=== PATIENT | female | born 1985 | race Caucasian/White ===

== ENCOUNTER 2021-12-02 15:08 | Emergency (ER) | payer OTHER ==
[~2021-12-02] VITALS: Ht 157.5 cm; Wt 48.5 kg
[2021-12-02] MEDS ORDERED: IBUPROFEN 600 MG TABLET ONE (16:31)
[2021-12-02] MEDS: IBUPROFEN 600 MG TABLET PO ONE (16:34)
--- NOTE | 2021-12-02 16:34 | NUR ---
PO MOTRIN GIVEN ORDERED
[2021-12-02] MEDS ORDERED: IBUP-1955 PO (17:28)
[2021-12-02] MEDS ORDERED: CEPH500T PO (17:28)
[2021-12-02 17:59] VITALS: BP 99/71
--- NOTE | 2021-12-02 17:59 | NUR ---
Patient discharged to home in stable condition. Written and verbal after care instructions given. Patient verbalizes understanding of instruction.
== END 2021-12-02 17:59 | disposition home or self-care (01) ==
LOC: ER 15:12
DX: M71.522 Other bursitis, not elsewhere classified, left elbow (principal)
CPT/HCPCS: 73080-TC

== ENCOUNTER 2023-02-17 22:21 | Emergency (ER) | payer MEDICAID, OTHER ==
[~2023-02-17] VITALS: Ht 157.5 cm; Wt 49.9 kg
[~2023-02-17 22:21] MED LIST: CEPH500T PO; IBUP-1955 PO
[2023-02-17 22:35] VITALS: BP 110/59
--- NOTE | 2023-02-17 22:40 | NUR ---
[id number] FROM HOME WITH FOR WOUND CHECK ON THE S/P ABDOMINAL SURGERY WOUND DONE 2 WEEKS AGO FROM [facility]. PATIENT DIDNT HAVE DRESSING CHANGE MADE, PER [employer] REPAIR PERSON, SHE WAS PUTTING SUBSTANCE(COCAINE) ON HER WOUND. SHE IS ALERT, ANXIOUS. PLACED IN BED 19. VITALS CHECKED.
--- NOTE | 2023-02-17 22:45 | NUR ---
PT BECAME VERBALLY ABUSIVE WHEN TO MD CHECK SURGICAL WOUND, SHOUTING "SHE WOULD RATHER LEAVE, SHE DOESN'T WANT TO BE TREATED IN SO!"
--- NOTE | 2023-02-17 22:55 | NUR ---
TO CHANGE BLESSING, PATIENT LEFT
== END 2023-02-17 22:55 | disposition left against medical advice (07) ==
LOC: ER 22:23
DX: L02.211 Cutaneous abscess of abdominal wall (principal); Z79.899 Other long term (current) drug therapy